=== PATIENT | male | born 1985 | race Two or more races ===

== ENCOUNTER 2022-06-26 00:54 | Emergency (ER) | payer MEDICAID, OTHER ==
[~2022-06-26] VITALS: Ht 172.7 cm; Wt 59.0 kg
[2022-06-26 02:35] VITALS: BP 138/105
== END 2022-06-26 02:13 | disposition left against medical advice (07) ==
LOC: ER 00:54
DX: S51.001D Unspecified open wound of right elbow, subsequent encounter (principal); Z53.21 Procedure and treatment not carried out due to patient leaving prior to being seen by health care provider; X58.XXXD Exposure to other specified factors, subsequent encounter